=== PATIENT | female | born 1970 ===

== ENCOUNTER 2018-01-24 11:02 | Day surgery (SDC) | payer OTHER ==
[2018-01-21 09:35] VITALS: BMI 29.1
[2018-01-24] MEDS ORDERED: ceFAZolin 1 GM in Sodium Chloride 0.9% 100 ML IVPB ONE (11:29)
[2018-01-24] MEDS ORDERED: Bupivacaine 0.25% Inj(30mL) IJ ONE (11:29)
[2018-01-24] MEDS ORDERED: Lidocaine 1% Inj (20ml) IJ ONE (11:29)
[2018-01-24] MEDS ORDERED: Sodium Chloride 0.9% 1,000 ML IV SCH (11:30)
--- NOTE | 2018-01-24 12:00 | CP.SDSHP ---
Same Day Surgery H & P - History Proposed Procedure: Left Lateral Ligament Brostrom repair Pre-Op Diagnosis: lateral ankle instability - Previous Medical/Surgical History Pain: 4.Moderate Pain - Allergies Allergies: Allergies No Known Allergies Allergy (Verified 01/26/16 12:23) - {Optional Preform as Required} Integument: WNL - Impression Pt. Evaluated Today:Candidate for Anesthesia & Procedure: Yes - Date & Time Date: 01/24/18 Time: 18:40 Short Stay Discharge - Short Stay Discharge Admitting Diagnosis/Reason for Visit: M25.372/S93.492A/ Referrals: Ari Villar MD [Primary Care Provider] - Additional Instructions (Diet, Activity): -Patient in good/stable condition for discharge home -Pt to resume medications per medical reconciliation -Resume regular diet Please keep dressing clean, dry, & intact to surgical site -Use plastic bag over bandage for showering -Wear post op shoe at all times when ambulating -Call clinic if you see signs of infection (redness, swelling, malodor) -Please make an appointment to see Dr. Garcia in office/clinic within 1 week for post-op check Progress Note/Discharge Note with Instructions: - Patient evaluated bedside in recovery s/p surgical procedure. - After surgical procedure patient in NAD - (+) Void, (+) Appetite - Capillary refill time <3s and NVSI intact. - Patient denies complaints at this time - Post operative instructions and plan of care explained to patient at length. - Pt. acknowledges understanding. - Patient stable for DC per podiatric surgery
--- NOTE | 2018-01-24 12:06 | CP.PCM.PN ---
Subjective - Date & Time of Evaluation Date of Evaluation: 01/24/18 Time of Evaluation: 12:00 - Subjective Subjective: Podiatry progress note for attending, Dr. Garcia 47 y/o female patient seen and evaluated at bedside in [facility] for left lateral ankle pain and instability. Patient reports she twisted her ankle about 2 years ago. Patient states she had a cramp to the left calf, and felt as if she "lost contro." Patient continued to walk on the foot for that duration of that day before coming to the ER at [facility]. Patient states the pain is 6/10 right now, and worse with ambulation. Patient states she last ate at 7:30 PM last night. Patient denies any previous adverse reactions to anesthesia. PMHx: HTN PSHx: Tubal Ligation, Appedectomy, Cholescystectomy Allergies: NKDA SHX: denies tobacco use, drinks socially Objective - Medications Medications: Current Medications Cefazolin Sodium 1 gm/ Sodium (Chloride) 100 mls @ 100 mls/hr IVPB ONCE ONE PRN Reason: Protocol Stop: 01/24/18 12:28 Sodium Chloride (Sodium Chloride 0.9%) 1,000 mls @ 0 mls/hr IV .Q0M BRIGIDA PRN Reason: As Directed Stop: 01/25/18 11:30 - Constitutional Appears: Well, Non-toxic, No Acute Distress - Head Exam Head Exam: ATRAUMATIC, NORMOCEPHALIC - Extremities Exam Additional comments: VASC: DP and PT 2/4 bilaterally; CFT less than 3 seconds X 10; TG warm to cool; non-pitting edema noted to the left lateral ankle NEURO: grossly intact DERM: no open wounds, no clinical signs of infection MSK: (LEFT)- pain on ankle range of motion of the left, pain to posterior to the lateral malleolus at the PTFL, and pain to the CFL and anteriorly to the ATFL, pain with inversion and eversion, MSK 4/5 on the left, pain to the plantar arch - Neurological Exam Neurological Exam: Alert, Awake, Oriented x3 - Psychiatric Exam Psychiatric exam: Normal Affect, Normal Mood Assessment and Plan - Assessment and Plan (Free Text) Assessment: 47 F seen and evaluated in [facility] for Left foot surgery Plan: Pt was seen and examined in [facility] Pt NPO status was confirmed All pre-op testing and clearance in chart Pt has exhausted all conservative treatment at this time and is opting for surgical intervention Pt was explained procedure and post-operative course All pt's questions were answered to satisfaction No guarantees were made Pt understands all risks, benefits and complications of procedure Pt will follow-up with Dr. Garcia within 1 week of surgery
[2018-01-24] MEDS ORDERED: ceFAZolin IV 2 gm in Dextrose 2 GM/50 ML BAG IVPB ONE (12:20)
[2018-01-24] MEDS ORDERED: Midazolam 2 MG/2 ML VIAL ONE (12:43)
[2018-01-24] MEDS ORDERED: Rocuronium 10 mg/ml (5 ml) ONE (12:43)
[2018-01-24] MEDS ORDERED: Propofol 10 mg/ml Inj (20 ML) ONE (12:43)
[2018-01-24] MEDS ORDERED: Succinylcholine 200 mg/10 ml Inj IV ONE (12:44)
[2018-01-24 13:12] VITALS: RESP 18
[2018-01-24] MEDS ORDERED: Lactated Ringer's 1,000 ML IV ONE ×2 (14:01→16:00)
[2018-01-24] MEDS ORDERED: Dexamethasone 4 mg/1 ml ONE (15:12)
[2018-01-24] MEDS ORDERED: Sevoflurane - Inhalation Anesthetic Liq (250 ml) ONE (15:15)
[2018-01-24] MEDS ORDERED: Ropivacaine 0.5% 30ML IV ONE (16:01)
[2018-01-24] MEDS ORDERED: Oxycodone/Acetaminophen 5/325 mg Tab PO PRN ×2 (16:52)
[2018-01-24] MEDS ORDERED: HYDROmorphone 0.5 mg/0.5 ml ISec IVP PRN (16:56)
--- NOTE | 2018-01-24 16:57 | PCM.SURG1 ---
Surgeon's Initial Post Op Note - Surgeon's Notes Surgeon: Dr. Garcia Fishing Floats Assembler: Dr. Maisha Hogue PGY3, Dr. Gerry Pelletier PGY3 Type of Anesthesia: General LMA Anesthesia Administered By: Dr. David Pre-Operative Diagnosis: Lateral Ankle Instability with partial peroneal tendon tear Operative Findings: see dictation. I: popliteal block. M: Arthrex Internal Brace, Suture Taks, 0-Vicryl, 2-0 Vicryl, 3-0 Vicryl, 4-0 Nylon Post-Operative Diagnosis: same Operation Performed: Lateral Ankle Internal Brace with debridement and repair of the peroneal brevis tendon Specimen/Specimens Removed: peroneal tendon Estimated Blood Loss: EBL {In ML}: 20 Blood Products Given: N/A Drains Used: No Drains Post-Op Condition: Good Date of Surgery/Procedure: 01/24/18 Time of Surgery/Procedure: 16:56
[2018-01-24] MEDS ORDERED: Lactated Ringer's 1,000 ML IV SCH (17:00)
--- NOTE | 2018-01-24 17:00 | PCM.ANESB2 ---
Popliteal Nerve Block - Popliteal Nerve Block Date of Procedure: 01/24/18 Anesthesiologist: Li Pre-Procedure Diagnosis: Left lateral ankle instability with peroneal tendon tear Post-Procedure Diagnosis: Same Procedure Performed: Popliteal Nerve Block Left - Procedure Popliteal Nerve Block: This procedure was explained to the patient that it is for post-operative pain management. Consent was obtained after a thorough discussion with the patient regarding the benefits and possible complications of local anesthetic block of the sciatic nerve at the popliteal level. The patient was brought to the operating room and standard monitors are applied. Time-out was held with the circulating nurse to confirm the correct surgery and the appropriate block. eneral anesthesia, patient's operative leg was gently raised and supported and the groove in between the biceps femoris and vastus lateralis muscles was carefully palpated. The skin approximately 8cm above the popliteal crease was then marked. The ultrasound transducer was then applied to the posterior thigh approximately 8cm above the popliteal crease in the transverse plane and the sciatic nerve before its division was visualized lateral to the popliteal artery and in between the bicep femoris and semimembranosus/semitendinosus muscles. After identification, the lateral portion of the thigh was prepped with Chloraprep. At this point, a # 21 gauge Stimuplex insulated 4 inch needle was inserted into pre-marked area and advanced in a perpendicular direction. The needle was inserted above the ultrasound transducer in-plane towards the sciatic nerve in a [id number] direction. Needle advancement was performed carefully under direct ultrasound visualization. Nerve stimulator was used and flexion of the _ left____ calf was elicited at a current of __0.45___ MA. After repeated negative aspiration, ___2__cc of __0.5___ % ropivicaine was injected and this was flowed with ___28___ cc of _0.5 % ____ropivicaine ___. Under ultrasound guidance the local anesthetics were observed surrounding sciatic nerve . The needle was removed intact. The patient tolerated the popliteal nerve block well with stable vital signs and was subsequently prepared for emergence.
--- NOTE | 2018-01-24 18:05 | RAD ---
Date of service: 01/24/2018 PROCEDURE: Fluoroscopy over 1 hour HISTORY: LEFT ANKLE COMPARISON: None TECHNIQUE: Standard protocol for this study/examination. FINDINGS: Submitted images from the current procedure: 7.0. IMPRESSION: Total fluoroscopic time (continuous mode) utilized during the procedure (seconds) 13.2.
[2018-01-24 18:25] VITALS: O2SAT 98
[2018-01-24 18:57] VITALS: BP 128/76; PULSE 72; TEMP 97.6
--- NOTE | 2018-01-27 02:32 | OP ---
PROCEDURE DATE: 01/24/2018 PREOPERATIVE DIAGNOSES: Left ankle instability with partial rupture of the anterior talofibular ligament and partial tear of the peroneus brevis tendon. POSTOPERATIVE DIAGNOSES: Left ankle instability with partial rupture of the anterior talofibular ligament and partial tear of the peroneus brevis tendon with partial tear of the peroneus longus tendon. PROCEDURES: 1. Debridement and repair of the peroneus brevis tendon. 2. Debridement and repair of the peroneus longus tendon. 3. Modified Brostrom-Orellana lateral ankle stabilization procedure with Arthrex internal bracing system. SURGEON: Lamont Garcia DPM ASSISTANTS: Dr. Vasques; Dr. Caldera. TYPE OF ANESTHESIA: General. HEMOSTASIS: Thigh tourniquet at 350 mmHg. DESCRIPTION OF PROCEDURE: The patient was brought to the operating room and positioned supine on the operating room table. After induction of general anesthesia by the anesthesiologist, the patient was positioned on the operating room table, and prepped and draped in the usual sterile manner. A bump was placed under the lower leg, and the leg was rotated in spite, there was a bump up to the left hip. Attention was directed to the lateral ankle. A curvilinear incision was made from posterior to the fibula crossing the ankle joint. Utilizing meticulous sharp and blunt dissection, the incision was deepened through the subcutaneous layer. All bleeders encountered were passed, cut, and coagulated with a Bovie unit. No major neurovascular structures were encountered. The tendon sheath of the peroneus longus and peroneus brevis tendon was identified and opened. The superior peroneal retinaculum was identified and tacked with Vicryl sutures and then transacted. The tendons were explored, and there was noted to be multiple adhesions and thickening of the tendons. The adhesions were debrided off the tendons, and there were noted to be longitudinal tears in both of the tendons. The devitalized portions of the tendons were debrided. Approximately, 25% of the diameter of each of the tendon was debrided. The areas were then irrigated with sterile saline solution. The tendons were tubularized and repaired with 0 Vicryl suture separately, repairing the peroneus longus tendon and repairing the peroneus brevis tendon separately. The superior peroneal retinaculum was then repaired with 0 Vicryl suture. Attention was then directed to the lateral ankle joint. Blunt dissection was utilized to deepen the incision, and the inferior extensor retinaculum was identified. A freer was placed under the retinaculum and the retinaculum was noted to be retracted distally. An incision was made into the soft tissue distal to the fibula at the area of the anterior inferior talofibular ligament. The joint space was exposed and the talus was identified and explored. There were no lesions at the dome of the talus. Next, a K-wire was utilized to identify the nonarticulating shoulder of the lateral talus and this was confirmed via fluoroscopy. Two SutureTaks were placed in the anterior portion of the fibula at the lateral malleolus and a third SutureTak was placed for the Arthrex internal brace system. The anterior talofibular ligament was then repaired in a fashion utilizing the sutures from the Arthrex SutureTak. The ankle joint was stressed and there was noted to be strong repair of the ligament with no talar tilt and no anterior drawer. The internal brace system was then utilized to augment the repair, placing the FiberWire tape into the talus. This was done with the subtalar joint in slight eversion. A 0 Vicryl suture was then utilized to oversew the repair of the anterior inferior talofibular ligament, but avoiding the internal brace. The inferior extensor retinaculum was then sewed over the repair with 0 Vicryl suture. The ankle joint was then placed to range of motion, and there was noted to be excellent range of motion of the ankle joint with slight resistance of subtalar joint supination with a strong repair successfully completed. The surgical site was then irrigated with sterile saline solution. The subcutaneous layer was then repaired with 3-0 Vicryl and 4-0 Vicryl sutures, and the skin was repaired with 4-0 nylon suture. A dry sterile compressive dressing was applied and the tourniquet was deflated. There was noted to be hyperemic response to all 5 digits. A circumferential bivalve fiberglass cast was then applied with the ankle joint at 90 degrees and slightly everted. The patient was stable throughout the entire procedure and tolerated the procedure well. The patient was returned to the recovery room in stable condition. Verbal and written instructions were provided for the patient as well as prescriptions for pain management and antibiotics with instruction of nonweightbearing with crutches. A regional block was administered by the anesthesiologist for pain control. Lamont Garcia DPM
== END 2018-01-24 19:15 | disposition home or self-care (01) ==
LOC: H.OPSURG 11:02
PROVIDERS: ATTEND Podiatrist Foot & Ankle Surgery
DX: S96.812A Strain of other specified muscles and tendons at ankle and foot level, left foot, initial encounter (principal); M25.372 Other instability, left ankle; I10 Essential (primary) hypertension; X50.1XXA Overexertion from prolonged static or awkward postures, initial encounter; Y92.9 Unspecified place or not applicable
CPT/HCPCS: 11043; 27658; 64450; 88305; C1713; J0330; J0690; J1100; J2001; J2250; J2405; J2704; J2765; J3010; J7120